=== PATIENT | female | born 1990 | race Hispanic/Latino ===

== ENCOUNTER 2021-01-08 19:50 | Inpatient (IN) | payer SELFPAY ==
[~2021-01-08] VITALS: Ht 149.9 cm; Wt 59.0 kg
[2021-01-08] MEDS ORDERED: PANTOPRAZOLE 40 MG 10ML VIAL IV STA (20:01)
[2021-01-08] MEDS ORDERED: ONDANSETRON HCL INJ 2MG/ML 2ML 2 MG/ML VIAL IV STA (20:01)
[2021-01-08] MEDS ORDERED: MORPHINE SULFATE INJ 4 MG/ML INJ 1ML IV STA (20:08)
[2021-01-08 20:14] LABS: BASOPHILS % 0.3 % (0.0-1.0); EOSINOPHILS % 0.3 % (0.0-6.0); HEMATOCRIT 43.9 % (34.2-44.1); HEMOGLOBIN 13.7 g/dL (12.0-16.0); LYMPHOCYTES # (AUTO) 1.2 (1.0-3.2); LYMPHOCYTES % 10.1 % (18.0-39.1); MEAN CORPUSCULAR HEMOGLOBIN 28.2 pg (28-32); MEAN CORPUSCULAR HGB CONC 31.2 g/dL (31-35); MEAN CORPUSCULAR VOLUME 90.5 fL (81-99); MONOCYTES # (AUTO) 0.9 (0.2-0.8); MONOCYTES % 7.6 % (4.4-11.3); NEUTROPHILS # (AUTO) 9.7 (2.1-6.9); NEUTROPHILS % 81.1 % (38.7-80.0); PLATELET COUNT 295 x10e3/uL (140-360); RED BLOOD COUNT 4.85 x10e6/uL (3.6-5.1); RED CELL DISTRIBUTION WIDTH 13.3 % (11.7-14.4)
[2021-01-08] MEDS ORDERED: SODIUM CHLORIDE 0.9% 1000ML 1,000 ML IV ONE (20:15)
[2021-01-08 20:16] LABS: CLARITY,URINE SL CLOUDY (CLEAR); COLOR,URINE YELLOW (YELLOW); KETONES,URINE NEGATIVE (NEGATIVE); LEUKOCYTE ESTERASE ,URINE NEGATIVE (NEGATIVE); NITRITE,URINE NEGATIVE (NEGATIVE); PREGNANCY TEST, URINE NEGATIVE (NEGATIVE); PROTEIN,URINE DIPSTICK NEGATIVE (NEGATIVE); URINE UROBILINOGEN 0.2 mg/dL (0.2 - 1)
[2021-01-08 20:26] LABS: AMORPHOUS SEDIMENT,URINE MANY (FEW); BACTERIA,URINE RARE /HPF; EPITHELIAL CELLS,URINE FEW /LPF
[2021-01-08 20:34] LABS: ALANINE AMINOTRANSFERASE 13 IU/L (0-55); ALBUMIN 3.7 g/dL (3.5-5.0); ALBUMIN/GLOBULIN RATIO 1.1 (0.8-2.0); ALKALINE PHOSPHATASE 54 IU/L (40-150); ANION GAP 12.5 mmol/L (8-16); BLOOD UREA NITROGEN < 5 mg/dL (7-26); CARBON DIOXIDE 29 mmol/L (22-29); CHLORIDE 102 mmol/L (98-107); CREATININE, SERUM 0.69 mg/dL (0.57-1.11); EST GLOMERULAR FILTRATION RATE > 60 ML/MIN (60-); GLUCOSE 107 mg/dL (74-118); POTASSIUM 3.5 mmol/L (3.5-5.1); SODIUM 140 mmol/L (136-145)
[2021-01-08 20:35] LABS: AMYLASE 55 U/L (25-125); BUN/CREATININE RATIO 7 (6-25); LIPASE 17 U/L (8-78)
[2021-01-08] MEDS ORDERED: PIPER-TAZ 3.375 GM / NS 50ML IV SCH (23:15)
[2021-01-08] MEDS: HYDROMORPHONE 1MG/1ML INJ IV PRN (23:30)
[2021-01-08] MEDS: PIPERACILLIN/TAZOBAC 3.375 GM in SODIUM CHLORIDE 0.9% 50ML 50 ML IV SCH (23:30)
[2021-01-08] MEDS: SODIUM CHLORIDE 0.9% 1000ML 1,000 ML IV SCH (23:30)
[2021-01-09] MEDS: HYDROMORPHONE 1MG/1ML INJ IV PRN ×3 (03:50→23:43)
[2021-01-09 06:23] LABS: BASOPHILS % 0.3 % (0.0-1.0); EOSINOPHILS % 0.3 % (0.0-6.0); HEMATOCRIT 39.1 % (34.2-44.1); HEMOGLOBIN 12.1 g/dL (12.0-16.0); LYMPHOCYTES # (AUTO) 1.4 (1.0-3.2); MEAN CORPUSCULAR HEMOGLOBIN 27.9 pg (28-32); MEAN CORPUSCULAR HGB CONC 30.9 g/dL (31-35); MEAN CORPUSCULAR VOLUME 90.3 fL (81-99); MONOCYTES # (AUTO) 0.9 (0.2-0.8); NEUTROPHILS % 77.1 % (38.7-80.0); PLATELET COUNT 270 x10e3/uL (140-360); RED BLOOD COUNT 4.33 x10e6/uL (3.6-5.1); RED CELL DISTRIBUTION WIDTH 13.2 % (11.7-14.4)
[2021-01-09 06:57] LABS: ALANINE AMINOTRANSFERASE 11 IU/L (0-55); ALBUMIN 3.1 g/dL (3.5-5.0); ALKALINE PHOSPHATASE 46 IU/L (40-150); AMYLASE 42 U/L (25-125); ANION GAP 9.9 mmol/L (8-16); CALCIUM 8.2 mg/dL (8.4-10.2); CARBON DIOXIDE 24 mmol/L (22-29); CHLORIDE 105 mmol/L (98-107); GLUCOSE 115 mg/dL (74-118); LIPASE 15 U/L (8-78); POTASSIUM 3.9 mmol/L (3.5-5.1); SODIUM 135 mmol/L (136-145)
[2021-01-09 07:23] LABS: CREATININE, SERUM 0.59 mg/dL (0.57-1.11); EST GLOMERULAR FILTRATION RATE > 60 ML/MIN (60-)
[2021-01-09 07:25] LABS: BUN/CREATININE RATIO 8 (6-25)
[2021-01-09 07:26] LABS: BLOOD UREA NITROGEN < 5 mg/dL (7-26)
[2021-01-09] MEDS: SODIUM CHLORIDE 0.9% 1000ML 1,000 ML IV SCH ×2 (07:53→16:41)
[2021-01-09] MEDS: PIPERACILLIN/TAZOBAC 3.375 GM in SODIUM CHLORIDE 0.9% 50ML 50 ML IV SCH ×3 (08:00→21:11)
[2021-01-09] MEDS: ONDANSETRON HCL INJ 2MG/ML 2ML 2 MG/ML VIAL IV PRN ×2 (08:35→23:43)
[2021-01-09] MEDS ORDERED: FENTANYL CITRATE/PF 100MCG/2 ML INJ ONE (12:52)
[2021-01-09] MEDS ORDERED: MIDAZOLAM HCL 2 MG/2 ML VIAL ONE (12:52)
[2021-01-09] MEDS ORDERED: BUPIVACAINE 0.25% 30ML SDV ONE (13:01)
[2021-01-09] MEDS ORDERED: HYDROGEN PEROXIDE 120 ML BTL ONE (14:55)
[2021-01-09] MEDS ORDERED: HYDROCODONE/APAP 7.5MG-325MG 1 EA TAB PO PRN (15:15)
[2021-01-09] MEDS ORDERED: PIPERACILLIN/TAZOBAC 3.375 GM VIAL ONE ×2 (15:28→20:14)
[2021-01-09] MEDS ORDERED: SODIUM CHLORIDE 0.9% 50ML 50 ML ONE (15:29)
[2021-01-09] MEDS ORDERED: ONDANSETRON HCL INJ 2MG/ML 2ML 2 MG/ML VIAL ONE (15:48)
[2021-01-09 16:27] VITALS: BP 119/76
[2021-01-09] MEDS: HYDROCODONE/APAP 7.5MG-325MG 1 EA TAB PO PRN ×2 (16:54→20:44)
[2021-01-09 17:00] VITALS: BP 119/76
[2021-01-09 20:12] VITALS: BP 103/67
[2021-01-09] MEDS ORDERED: SODIUM CHLORIDE 0.9% 50ML 100 ML ONE (20:15)
[2021-01-09 20:45] VITALS: BP 103/67
[2021-01-09 20:54] VITALS: BP 103/67
[2021-01-09 23:44] VITALS: BP 120/78
[2021-01-10] MEDS: SODIUM CHLORIDE 0.9% 1000ML 1,000 ML IV SCH ×2 (02:15→09:40)
[2021-01-10] MEDS: ONDANSETRON HCL INJ 2MG/ML 2ML 2 MG/ML VIAL IV PRN (03:46)
[2021-01-10] MEDS: HYDROMORPHONE 1MG/1ML INJ IV PRN ×2 (03:46→09:03)
[2021-01-10 04:30] VITALS: BP 100/54
[2021-01-10 05:29] LABS: BASOPHILS % 0.2 % (0.0-1.0); EOSINOPHILS % 0.1 % (0.0-6.0); HEMATOCRIT 33.7 % (34.2-44.1); HEMOGLOBIN 10.6 g/dL (12.0-16.0); LYMPHOCYTES # (AUTO) 1.1 (1.0-3.2); LYMPHOCYTES % 9.4 % (18.0-39.1); MEAN CORPUSCULAR HEMOGLOBIN 28.7 pg (28-32); MEAN CORPUSCULAR HGB CONC 31.5 g/dL (31-35); MEAN CORPUSCULAR VOLUME 91.3 fL (81-99); MONOCYTES # (AUTO) 1.1 (0.2-0.8); MONOCYTES % 9.6 % (4.4-11.3); NEUTROPHILS % 80.3 % (38.7-80.0); PLATELET COUNT 252 x10e3/uL (140-360); RED BLOOD COUNT 3.69 x10e6/uL (3.6-5.1); RED CELL DISTRIBUTION WIDTH 13.2 % (11.7-14.4)
[2021-01-10] MEDS: PIPERACILLIN/TAZOBAC 3.375 GM in SODIUM CHLORIDE 0.9% 50ML 50 ML IV SCH ×2 (05:41→13:03)
[2021-01-10 05:52] LABS: ANION GAP 10.6 mmol/L (8-16); BLOOD UREA NITROGEN < 5 mg/dL (7-26); CALCIUM 8.1 mg/dL (8.4-10.2); CARBON DIOXIDE 23 mmol/L (22-29); CHLORIDE 106 mmol/L (98-107); CREATININE, SERUM 0.61 mg/dL (0.57-1.11); EST GLOMERULAR FILTRATION RATE > 60 ML/MIN (60-); GLUCOSE 98 mg/dL (74-118); POTASSIUM 3.6 mmol/L (3.5-5.1); SODIUM 136 mmol/L (136-145)
[2021-01-10 05:54] LABS: BUN/CREATININE RATIO 8 (6-25)
[2021-01-10] MEDS: HYDROCODONE/APAP 7.5MG-325MG 1 EA TAB PO PRN ×2 (06:15→13:17)
[2021-01-10 07:10] VITALS: BP 107/77
[2021-01-10 07:40] VITALS: BP 107/77
[2021-01-10 08:17] VITALS: BP 107/77
[2021-01-10 11:19] VITALS: BP 125/76
[2021-01-10] MEDS ORDERED: PIPERACILLIN/TAZOBAC 3.375 GM VIAL ONE (12:31)
[2021-01-10] MEDS ORDERED: SODIUM CHLORIDE 0.9% 50ML 50 ML ONE (12:31)
[2021-01-10] MEDS ORDERED: LIDOCAINE HCL 2% LOCAL INJ 5 ML SDV VIAL INJ ONE (12:47)
[2021-01-10] MEDS ORDERED: METOCLOPRAMIDE HCL 10 MG/2ML VIAL ONE (12:47)
[2021-01-10] MEDS ORDERED: GLYCOPYRROLATE INJ 0.2 MG/ML VIAL ONE (12:47)
[2021-01-10] MEDS ORDERED: ONDANSETRON HCL INJ 2MG/ML 2ML 2 MG/ML VIAL ONE (12:47)
[2021-01-10] MEDS ORDERED: ROCURONIUM BROMIDE 10 MG/ML 5ML VIAL IV ONE (12:47)
[2021-01-10] MEDS ORDERED: NEOSTIGMINE 1 MG/ML 10ML VIAL ONE (12:47)
[2021-01-10] MEDS ORDERED: SEVOFLURANE INHAL SOLN 250 ML PEN BTL ONE (12:47)
[2021-01-10] MEDS ORDERED: PROPOFOL IV EMULSION 10 MG/ML 20 ML VIAL ONE (12:47)
[2021-01-10] MEDS ORDERED: DEXAMETHASONE SOD PHOS INJ 4 MG/ML VIAL ONE (12:47)
[2021-01-10] MEDS ORDERED: KETOROLAC TROMETHAMINE 30 MG/ML VIAL ONE (12:47)
== END 2021-01-10 15:20 | disposition home or self-care (01) | DRG 419 ==
LOC: ER 19:55 → ERHOLD 23:16 → PACU V 01-09 11:30 → MED/SURG 01-09 16:22
PROVIDERS: ADMIT Surgery; ATTEND Surgery
PROC: 0FT44ZZ Resection of Gallbladder, Percutaneous Endoscopic Approach (ICD-10-PCS; principal; 2021-01-09 12:00)
DX: K80.00 Calculus of gallbladder with acute cholecystitis without obstruction (principal); Z20.822 Contact with and (suspected) exposure to COVID-19
CPT/HCPCS: 36415; 76705; 80048; 80053; 81001; 81025; 82150; 83690; 85025; 88304; 96360; 99284; C1766; J1100; J1170; J1885; J2001; J2250; J2270; J2405; J2543; J2710; J2765; J3010; J7030; U0002